=== PATIENT | male | born 1990 | race Hispanic/Latino ===

== ENCOUNTER 2018-11-28 19:19 | Emergency (ER) | payer SELFPAY ==
--- NOTE | 2018-11-28 19:50 | Event Note ---
ED Screening Note Date of service: 11/28/18 Time: 19:45 ED Screening Note: 28 y/o male comes in for right eye pain. Was working in the yard thinks he may have gotten something in it. Tetracaine to left eye applied This initial assessment/diagnostic orders/clinical plan/treatment(s) is/are subject to change based on patients health status, clinical progression and re- assessment by fellow clinical providers in the ED. Further treatment and workup at subsequent clinical providers discretion. Patient/guardian urged not to elope from the ED as their condition may be serious if not clinically assessed and managed. Initial orders include:
[2018-11-28] MEDS ORDERED: IBUPROFEN PO ONE ×2 (19:52→19:53)
--- NOTE | 2018-11-28 23:01 | Emergency Department Report ---
Eye Injury/Foreign Body - HPI Duration: Today Eye Location: Right Tetanus Status: Unknown Eye Symptoms: Eye Pain: Yes, Blurred Vision: Yes, Eye Redness: Yes, Grinding/Hammering Metal: No, Used Eye Protection: No, Contact Lens Use: No, Recalls Injury: Yes, Photophobia: No Other History: This is a 28-year-old male who presents to the emergency room with redness, pain, and drainage from right. Patient states he was cutting a log trailer around 1300 today and started feeling pain shortly after. Patient states he didn't think anything went into his eye started feeling a grinding sensation sharp pain. He reports pain is relieved when he look down. He denies wearing contacts or glasses. He reports blurry vision. ED Review of Systems ROS: Stated complaint: RT EYE PAIN Other details as noted in HPI Constitutional: denies: chills, fever Eyes: eye pain (right eye), eye discharge (right eye). denies: vision change ENT: denies: ear pain, throat pain Respiratory: denies: cough, shortness of breath, wheezing Gastrointestinal: denies: abdominal pain, nausea, diarrhea Skin: denies: rash, lesions Neurological: denies: headache, weakness, paresthesias Psychiatric: denies: anxiety, depression ED Past Medical Hx - Past Medical History Previous Medical History?: No - Surgical History Past Surgical History?: No - Social History Smoking Status: Never Smoker Substance Use Type: None - Medications Home Medications: Home Medications Medication Instructions Recorded Confirmed Last Taken Type Tobramycin/Dexamethasone [Tobradex 1 - 2 drop OP Q4HR #1 drops.susp 11/29/18 Unknown Rx Eye Drops 0.3/0.1%] Eye Injury Exam - Exam General: Vital signs noted. No distress. Alert and acting appropriately. - Visual Acuity Right Vision Acuity Degree: 20/25 Eye Exam: Right Injection, Right Mucous Discharge, Right Fluorescein Uptake (a linear tear on the right upper above iris), Both EOMI, Neither Chemosis, Neither Abnormal Pupil, Neither Eye Foreign Body, Neither Lid Foreign Body, Neither Purulent Discharge, Neither Fluorescein Uptake (slit lamp), Neither Cell/Flare (slit lamp), Neither Corneal Edema, Neither Photophobia ED Course Vital Signs 11/28/18 11/28/18 11/28/18 19:26 19:46 19:53 Temperature 97.7 F 97.7 F Pulse Rate 74 79 Respiratory 18 18 18 Rate Blood Pressure 122/87 122/87 O2 Sat by Pulse 99 99 Oximetry 11/28/18 20:53 Temperature Pulse Rate Respiratory 18 Rate Blood Pressure O2 Sat by Pulse Oximetry ED Medical Decision Making - Medical Decision Making This is a 28-year-old male that presents with pain and mucous discharge to right eye. Patient is stable and was examined by me. Vitals normal. The right eye is stained and evaluated with the bolivar light. There were no foreign objects found but a linear corneal abrasion. Eye was irrigated with normal saline. Patient will be started on tobramycin eyedrops. Referral to absorption plant operator helper for follow- up within 24 hours. The patient was struck to the follow-up with the absorption plant operator helper within 24 hours. He agreed with the ER plan. Patient was discharged home stable. Critical care attestation.: If time is entered above; I have spent that time in minutes in the direct care of this critically ill patient, excluding procedure time. ED Disposition Clinical Impression: Acute right eye pain Corneal abrasion Qualifiers: Encounter type: initial encounter Laterality: right Qualified Code(s): S05.01XA - Injury of conjunctiva and corneal abrasion without foreign body, right eye, initial encounter Disposition: DC-01 TO HOME OR SELFCARE Is pt being admited?: No Does the pt Need Aspirin: No Condition: Stable Instructions: Corneal Abrasion (ED) Additional Instructions: Apply antibiotic drops to the right eye as prescribed. Follow-up with an absorption plant operator helper within the next 24 hours. Return to the emergency room if worsening symptoms. Prescriptions: Tobramycin/Dexamethasone [Tobradex Eye Drops 0.3/0.1%] 1 - 2 drop OP Q4HR #1 drops.susp Referrals: FABRICE VICENTE MD [Primary Care Provider] - 3-5 Days [facility] [Provider Group] - 3-5 Days [facility] [Provider Group] - 3-5 Days DESHAWN MAC MD [Staff Physician] - 3-5 Days Forms: Work/School Release Form(ED) Time of Disposition: 00:11
[2018-11-28] MEDS ORDERED: FUL-GLO OP ONE ×2 (23:52→23:55)
[2018-11-29 00:32] VITALS: BP 111/81
== END 2018-11-29 00:46 | disposition home or self-care (01) ==
LOC: ED 19:19
DX: S05.01XA Injury of conjunctiva and corneal abrasion without foreign body, right eye, initial encounter (principal); X58.XXXA Exposure to other specified factors, initial encounter; Y93.89 Activity, other specified; Y92.89 Other specified places as the place of occurrence of the external cause; Y99.8 Other external cause status
CPT/HCPCS: 99284

== ENCOUNTER 2019-07-19 05:27 | Emergency (ER) | payer SELFPAY ==
[2019-07-19 06:31] LABS: Basophils # (Auto) 0.1 K/mm3 (0.0-0.1); Basophils % (Auto) 0.8 % (0.0-1.8); Eosinophils # (Auto) 0.7 K/mm3 (0.0-0.4); Eosinophils % (Auto) 9.8 % (0.0-4.3); Hematocrit 44.2 % (35.5-45.6); Hemoglobin 15.1 gm/dl (11.8-15.2); Lymphocytes # (Auto) 1.9 K/mm3 (1.2-5.4); Lymphocytes % (Auto) 26.9 % (13.4-35.0); Mean Corpuscular HGB Conc 34 % (32-34); Mean Corpuscular Volume 87 fl (84-94); Monocytes # (Auto) 0.8 K/mm3 (0.0-0.8); Monocytes % (Auto) 11.6 % (0.0-7.3); Platelet Count 389 K/mm3 (140-440); Red Blood Count 5.09 M/mm3 (3.65-5.03)
[2019-07-19 06:42] LABS: Alanine Aminotransferase 29 units/L (7-56); Albumin 4.6 g/dL (3.9-5); BUN/Creatinine Ratio 11; Blood Urea Nitrogen 10 mg/dL (9-20); Calcium 9.4 mg/dL (8.4-10.2); Hemolysis Index 5
[2019-07-19 08:25] LABS: Bilirubin,Urine NEG (Negative); Blood,Urine NEG (Negative); Color,Urine Yellow (Yellow); Mucus,Urine FEW /HPF; Protein,Urine <15 mg/dL mg/dL (Negative); Urobilinogen,Urine < 2.0 mg/dL (<2.0); WBC,Urine < 1.0 /HPF (0.0-6.0)
[2019-07-19] MEDS ORDERED: SUCRALFATE 1 GM/10 ML ORAL LIQD PO ONE (09:21)
[2019-07-19] MEDS ORDERED: ALUM-MAG HYDROXIDE-SIMETHICONE 200-200-20MG/5ML ORAL LIQD 30 ML PO ONE (09:21)
[2019-07-19] MEDS ORDERED: FAMOTIDINE 20 MG TAB PO ONE (09:21)
--- NOTE | 2019-07-19 09:22 | Emergency Department Report ---
ED General Adult HPI - General Chief complaint: Abdominal Pain Stated complaint: STOMACH PAIN Time Seen by Provider: 07/19/19 09:12 Source: patient, RN notes reviewed Mode of arrival: Ambulatory Limitations: No Limitations - History of Present Illness Initial comments: This is a pleasant 29-year-old gentleman who is not known to myself previously. Currently, he does not have a primary care doctor. About 14 years ago, he was seen by gastroenterology, Dr. Abhi Ortiz, and he was presumptively diagnosed with stomach ulcers. He presents to the emergency room today with a complaint of nontraumatic abdominal pain for 2 weeks. He indicates he abdominal pain is in the bilateral mid flanks, starts in the midline abdomen, radiates outward. He describes it as hunger, stabbing, throbbing, sharp and intermittent. It occasionally increases with palpation. There is no headache, neck pain, chest pain, no shortness of breath, no urinary symptoms, he reports taking Goody powder, perhaps 3000 mg daily, without improvement in symptoms. His symptoms are occasionally worse at night. He does not associate the symptoms with heavy and/or spicy food. He cam e in today because his symptoms were not resolving, and he really wants to get it checked out and evaluated. He believes that he is defecating normally. -: Gradual, week(s) Location: abdomen Quality: other Consistency: other Improves with: rest Worsens with: other Associated Symptoms: other - Related Data Previous Rx's Medication Instructions Recorded Last Taken Type Tobramycin/Dexamethasone [Tobradex 1 - 2 drop OP Q4HR #1 drops.susp 11/29/18 Unknown Rx Eye Drops 0.3/0.1%] Acetaminophen [Non-Aspirin Extra 500 mg PO Q6HR PRN #30 tablet 07/19/19 Unknown Rx Strength] Famotidine [Pepcid] 20 mg PO BID #60 tablet 07/19/19 Unknown Rx Metoclopramide [Reglan] 10 mg PO QID PRN #30 tablet 07/19/19 Unknown Rx Allergies Allergy/AdvReac Type Severity Reaction Status Date / Time No Known Allergies Allergy Verified 11/28/18 19:25 ED Review of Systems ROS: Stated complaint: STOMACH PAIN Other details as noted in HPI Constitutional: denies: fever Eyes: denies: eye discharge ENT: denies: congestion Respiratory: cough. denies: wheezing Cardiovascular: denies: syncope Gastrointestinal: abdominal pain. denies: vomiting, melena Genitourinary: denies: dysuria, testicular pain Musculoskeletal: denies: myalgia Skin: denies: lesions Neurological: denies: weakness Hematological/Lymphatic: denies: easy bleeding ED Past Medical Hx - Past Medical History Previous Medical History?: Yes Additional medical history: stomach ulcer - Surgical History Past Surgical History?: Yes Additional Surgical History: tonsil - Social History Smoking Status: Never Smoker Substance Use Type: None - Medications Home Medications: Home Medications Medication Instructions Recorded Confirmed Last Taken Type Tobramycin/Dexamethasone [Tobradex 1 - 2 drop OP Q4HR #1 drops.susp 11/29/18 Unknown Rx Eye Drops 0.3/0.1%] Acetaminophen [Non-Aspirin Extra 500 mg PO Q6HR PRN #30 tablet 07/19/19 Unknown Rx Strength] Famotidine [Pepcid] 20 mg PO BID #60 tablet 07/19/19 Unknown Rx Metoclopramide [Reglan] 10 mg PO QID PRN #30 tablet 07/19/19 Unknown Rx ED Physical Exam - General Limitations: No Limitations General appearance: alert, in no apparent distress - Head Head exam: Present: atraumatic, normocephalic - Eye Eye exam: Present: normal appearance, EOMI. Absent: nystagmus - ENT ENT exam: Present: normal exam, normal orophraynx, mucous membranes moist, normal external ear exam - Neck Neck exam: Present: normal inspection, full ROM. Absent: tenderness, meningismus - Respiratory Respiratory exam: Present: normal lung sounds bilaterally. Absent: respiratory distress - Cardiovascular Cardiovascular Exam: Present: normal rhythm, bradycardia, normal heart sounds. Absent: irregular rhythm, systolic murmur, diastolic murmur, rubs, gallop - GI/Abdominal GI/Abdominal exam: Present: soft, tenderness, other (there is left lower quadrant tenderness. There is right upper quadrant tenderness.). Absent: distended, guarding, rebound, rigid, pulsatile mass - Rectal Rectal exam: Present: deferred - Extremities Exam Extremities exam: Present: normal inspection, full ROM, other (2+ pulses noted in the bilateral upper and lower extremities. There is no long bony tenderness. The pelvis is stable. The muscular compartments are soft. There is no palpable cord. There is no redness, pus or streaking.). Absent: pedal edema, calf tenderness - Back Exam Back exam: Present: normal inspection, full ROM. Absent: tenderness, CVA tenderness (R), CVA tenderness (L), paraspinal tenderness, vertebral tenderness - Neurological Exam Neurological exam: Present: alert, normal gait, other (there is no facial droop. Tongue is midline. Extraocular movements are intact bilaterally. Walking with a steady gait. Speaking in full sentences. Normal appropriate thought content. 5 out of 5 strength in 4 extremities. Sensation is intact to light touch in 4 extremities.). Absent: motor sensory deficit - Psychiatric Psychiatric exam: Present: normal affect, normal mood, flat affect - Skin Skin exam: Present: warm, dry, intact, normal color. Absent: rash ED Course Vital Signs 07/19/19 07/19/19 07/19/19 05:31 05:45 09:23 Temperature 97.6 F Pulse Rate 78 Respiratory 18 Rate Blood Pressure 142/98 Blood Pressure [Right] O2 Sat by Pulse 99 Oximetry 07/19/19 11:49 Temperature Pulse Rate 50 L Respiratory 20 Rate Blood Pressure Blood Pressure 123/70 [Right] O2 Sat by Pulse 98 Oximetry - Reevaluation(s) Reevaluation #1: 07/19/19 10:04 Differential diagnosis, including not limited to: Pancreatitis, no urinary colic, cholecystitis, renal colic, diverticulitis, inflammatory bowel disease, irritable bowel syndrome, GERD, gastritis Assessment and plan: 29-year-old gentleman with 2 weeks of abdominal pain. He is afebrile with reassuring vital signs, denies DVT and pulmonary embolism risk factors, he is low risk by well's criteria, and he is perc negative Screening laboratory studies initially unremarkable, however, he is fairly tender in the right upper quadrant, without respiratory sensation with deep palpation, and also somewhat tender in his left lower quadrant. Additional laboratory studies have been ordered, especially given his endorsed history of copious ingestion of Goody powder, although I suspect he may be overestimating his quantity that he has ingested. While upper quadrant ultrasound ordered, CT scan abdomen and pelvis ordered, appropriate therapeutic interventions have been administered. We will reassess once his data points have resulted. Reevaluation #2: 07/19/19 11:15 ruq ultrasound neg Reevaluation #3: 07/19/19 12:31 CT scan negative for acute disease. Planning on a saline phone. Belly is soft on repeat examination. Discussed significance of findings with patient, need for close outpatient follow-up. Patient verbalizes understanding. Return precautions are reviewed. Patient suitable for discharge with outpatient follow-up at this time. ED Medical Decision Making - Lab Data Result diagrams: 07/19/19 05:56 07/19/19 05:56 Vital Signs 07/19/19 07/19/19 07/19/19 05:31 05:45 09:23 Temperature 97.6 F Pulse Rate 78 Respiratory 18 Rate Blood Pressure 142/98 O2 Sat by Pulse 99 Oximetry Lab Results 07/19/19 07/19/19 07/19/19 Range/Units 05:56 05:56 07:38 WBC 7.0 (4.5-11.0) K/mm3 RBC 5.09 H (3.65-5.03) M/mm3 Hgb 15.1 (11.8-15.2) gm/dl Hct 44.2 (35.5-45.6) % MCV 87 (84-94) fl MCH 30 (28-32) pg MCHC 34 (32-34) % RDW 14.0 (13.2-15.2) % Plt Count 389 (140-440) K/mm3 Lymph % (Auto) 26.9 (13.4-35.0) % [place] % (Auto) 11.6 H (0.0-7.3) % Eos % (Auto) 9.8 H (0.0-4.3) % Baso % (Auto) 0.8 (0.0-1.8) % Lymph # 1.9 (1.2-5.4) K/mm3 [facility] # 0.8 (0.0-0.8) K/mm3 Eos # 0.7 H (0.0-0.4) K/mm3 Baso # 0.1 (0.0-0.1) K/mm3 Seg Neutrophils % 50.9 (40.0-70.0) % Seg Neutrophils # 3.6 (1.8-7.7) K/mm3 Sodium 141 (137-145) mmol/L Potassium 4.1 (3.6-5.0) mmol/L Chloride 104.0 (98-107) mmol/L Carbon Dioxide 27 (22-30) mmol/L Anion Gap 14 mmol/L BUN 10 (9-20) mg/dL Creatinine 0.9 (0.8-1.5) mg/dL Estimated GFR > 60 ml/min BUN/Creatinine Ratio 11 % Glucose 110 H (75-100) mg/dL Calcium 9.4 (8.4-10.2) mg/dL Total Bilirubin 0.50 (0.1-1.2) mg/dL AST 17 (5-40) units/L ALT 29 (7-56) units/L Alkaline Phosphatase 65 (35-129) units/L Total Protein 6.7 (6.3-8.2) g/dL Albumin 4.6 (3.9-5) g/dL Albumin/Globulin Ratio 2.2 % Urine Color Yellow (Yellow) Urine Turbidity Clear (Clear) Urine pH 5.0 (5.0-7.0) Ur Specific [place] 1.017 (1.003-1.030) Urine Protein <15 mg/dl (Negative) mg/dL Urine Glucose (UA) Neg (Negative) mg/dL Urine Ketones Neg (Negative) mg/dL Urine Blood Neg (Negative) Urine Nitrite Neg (Negative) Urine Bilirubin Neg (Negative) Urine Urobilinogen < 2.0 (<2.0) mg/dL Ur Leukocyte Esterase Neg (Negative) Urine WBC (Auto) < 1.0 (0.0-6.0) /HPF Urine RBC (Auto) 2.0 (0.0-6.0) /HPF Urine Mucus Few /HPF - EKG Data -: EKG Interpreted by Pa EKG shows normal: sinus rhythm Rate: bradycardia - EKG Data When compared to previous EKG there are: previous EKG unavailable 07/19/19 10:06 There is no prior EKG available for comparison. The EKG shows a sinus bradycardia, per minute, normal axis, low voltage in aVL, QTC within normal limits, the EKG shows borderline high left ventricular voltages, EKG is not consistent with ST elevation myocardial infarction. - Radiology Data Radiology results: pending Critical care attestation.: If time is entered above; I have spent that time in minutes in the direct care of this critically ill patient, excluding procedure time. ED Disposition Clinical Impression: Epigastric abdominal pain Disposition: - TO HOME OR SELFCARE Is pt being admited?: No Does the pt Need Aspirin: No Condition: Stable Additional Instructions: Avoid consumption of Motrin, ibuprofen, Naprosyn, Aleve. Avoid consumption of heavy and/or spicy foods. Do not take metformin medication for the next 2 days, if patient takes his medication. Recommend following up with a primary care doctor or street light servicer within the next 7-10 days. Drink plenty of fluids, preferably water, and consume bland food, such as bread, rice, apples, toast, fiberr, vegetables. Please return to emergency room right away with new, worse or different symptoms, or symptoms not present on the initial emergency room evaluation. Prescriptions: Acetaminophen [Non-Aspirin Extra Strength] 500 mg PO Q6HR PRN #30 tablet PRN Reason: Pain , Severe (7-10) Famotidine [Pepcid] 20 mg PO BID #60 tablet Metoclopramide [Reglan] 10 mg PO QID PRN #30 tablet PRN Reason: Nausea Referrals: DUANE ORTIZ MD [Staff Physician] - 7-10 days ZACH GAMEZ MD [Staff Physician] - 7-10 days [facility] [Provider Group] - 7-10 days [facility] [Provider Group] - 7-10 days Forms: Accompanied Note, Work/School Release Form(ED)
[2019-07-19] MEDS ORDERED: MORPHINE 4 MG/1 ML INJ IV ONE (09:41)
[2019-07-19] MEDS ORDERED: SODIUM CHLORIDE 0.9% 1000 ML 1,000 ML IV ONE (09:41)
--- NOTE | 2019-07-19 11:08 | Ultrasound Report ---
ULTRASOUND ABDOMEN, LIMITED (RIGHT UPPER QUADRANT) INDICATION: ruq pain, gall bladder study. COMPARISON: None available. FINDINGS: Pancreas: Visualized portion shows no significant abnormality. Liver: Normal. Gallbladder: Mild increased echogenicity in the gallbladder is favored to be artifactual. Negative fo r wall thickening or gallstones. Bile ducts: Normal. Common Bile Duct measures 3 mm. Free fluid: None. Additional Findings: None. IMPRESSION: Unremarkable limited abdominal ultrasound. Signer Name: Jj Oconnor MD Signed: 07/19/2019 11:03 AM Workstation Name: [id number]
[2019-07-19 11:50] VITALS: BP 123/70
--- NOTE | 2019-07-19 12:21 | Cat Scan Report ---
CT ABDOMEN AND PELVIS WITH CONTRAST HISTORY: Right upper quadrant, left lower quadrant abdominal pain COMPARISON: None. TECHNIQUE: Axial CT images were obtained through the abdomen and pelvis after 100 cc of Omnipaque 300 intravenously. Sagittal and coronal reformatted images. All CT scans at this location are performed using CT dose reduction for ALARA by means of automated exposure control. FINDINGS: CT ABDOMEN: Lung Bases: Clear. Liver: No significant abnormality. Biliary: No significant abnormality. Spleen: No significant abnormality. Unenlarged. Pancreas: No significant abnormality. Adrenals: No significant abnormality. Kidneys: No significant abnormality. Lymphatics: No lymphadenopathy. Vasculature: No significant abnormality. Bowel/Peritoneum: No significant abnormality. No free air. No free fluid. Normal appendix. CT PELVIS: : No significant abnormality. Osseous Structures: No significant abnormality. Additional Findings: None IMPRESSION: No significant abnormality. Signer Name: Iron Marques Jr, MD Signed: 07/19/2019 12:16 PM Workstation Name: [id number]
== END 2019-07-19 12:37 | disposition home or self-care (01) ==
LOC: ED 05:27
DX: R10.13 Epigastric pain (principal); Z79.899 Other long term (current) drug therapy
CPT/HCPCS: 36415; 74177; 76705; 80053; 81001; 82550; 83690; 83735; 85025; 93005; 93010; 96374; 99285; J2270; J7030; Q9967; 80320; G0480